=== PATIENT | female | born 1985 | race Caucasian/White ===

== ENCOUNTER 2017-04-18 04:01 | Emergency (ER) | payer SELFPAY, MEDICAID | END 2017-04-18 05:33 | disposition left against medical advice (07) | LOC: FTE 04:01 | DX: Z53.21 Procedure and treatment not carried out due to patient leaving prior to being seen by health care provider (principal) ==

== ENCOUNTER 2017-10-24 11:05 | Emergency (ER) | payer MEDICAID ==
[2017-10-24] MEDS: KETOROLAC 60 MG INJ IM (12:48)
== END 2017-10-24 13:58 | disposition home or self-care (01) ==
LOC: FTE 11:05
DX: S39.012A Strain of muscle, fascia and tendon of lower back, initial encounter (principal); R40.2412 Glasgow coma scale score 13-15, at arrival to emergency department; W01.0XXA Fall on same level from slipping, tripping and stumbling without subsequent striking against object, initial encounter; Y92.512 Supermarket, store or market as the place of occurrence of the external cause
CPT/HCPCS: 72100; 73562; 81025; 96372; 99284-25

== ENCOUNTER 2018-05-06 21:27 | Emergency (ER) | payer MEDICAID | END 2018-05-07 00:35 | disposition home or self-care (01) | LOC: FTE 21:27 | DX: H66.91 Otitis media, unspecified, right ear (principal); B37.9 Candidiasis, unspecified | CPT/HCPCS: 99283; Z7502 ==